=== PATIENT | female | born 1985 | race Caucasian/White ===

== ENCOUNTER → 2020-02-08 14:10 | Outpatient (BNVA) | payer OTHER, SELFPAY | PROVIDERS: Family Provider Family Medicine; PCP Family Medicine; Visit Provider Family Medicine | DX: Z11.59 Encounter for screening for other viral diseases (principal) | CPT/HCPCS: 87635 ==

== ENCOUNTER → 2022-07-31 11:01 | Outpatient (BNVA) | payer OTHER, SELFPAY | PROVIDERS: PCP Family Medicine; Visit Provider Family Medicine | DX: E66.9 Obesity, unspecified (principal) | CPT/HCPCS: 80053; 80061; 83036; 84443; 85025 ==

== ENCOUNTER 2022-09-25 06:53 | Emergency (ER) | payer OTHER, SELFPAY ==
[2022-09-25] VITALS (13 sets, daily range): BP systolic 131–171; BP diastolic 60–137; PULSE 64–91; RESP 13–21; O2SAT 95–100
--- NOTE | 2022-09-25 07:01 | ECG_ITS ---
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 Measurements Intervals [place] Rate: 80 P: 44 NC: 155 QRS: 43 QRSD: 84 T: 12 QT: 357 QTc: 414 Interpretive Statements SINUS RHYTHM NONSPECIFIC T-WAVE ABNORMALITY No previous ECG available for comparison Electronically Signed On 09-25-2022 14:18:54 CDT by Milo Barth M.D. [id number] f
--- NOTE | 2022-09-25 07:01 | XRR_ITS ---
PROCEDURE INFORMATION: Exam: XR Chest Exam date and time: 09/25/2022 7:27 AM Age: 36 years old Clinical indication: Pain; Angina pectoris; Prior surgery; Surgery type: Gallbladder; Additional info: Chest pain TECHNIQUE: Imaging protocol: Radiologic exam of the chest. Views: 1 view. COMPARISON: CR XR thoracic spine 3V* [id number] 04/01/2018 7:42 AM FINDINGS: Lungs: There is no consolidation. Pleural spaces: There is no pleural effusion or pneumothorax. Heart/Mediastinum: Cardiomediastinal contours are unremarkable. Bones/joints: Bones are unremarkable. XR/XR chest 1V portable [id number] IMPRESSION: No acute findings.
--- NOTE | 2022-09-25 07:07 | W.ED.CHESTPA ---
HPI - Chest Pain General: Chief Complaint: Chest Pain Stated Complaint: chest pain Time Seen by Provider: 09/25/22 06:58 Source: patient Mode of arrival: ambulatory Limitations: no limitations History of Present Illness: Patient is a 36-year-old female who presents to ED today with a complaint of elevated blood pressure and chest pain. She states she began noticing the chest pain approximately 1.5 hours ago while driving to work. She states upon arrival to work they checked her blood pressure and it was 180s/100s via manual. Patient states she has no history of hypertension but states at her last doctor's appointment they did tell her it was a little bit high but was just told to monitor. She is not on hypertensive medications. Patient states pain is located in the left side of her chest with radiation into her left arm. She denies shortness of breath or difficulty breathing. No lower extremity swelling or calf pain. No risk factors for PE. No known family cardiac disease however states her parents in an MVA in their 40s. She reports she did wake up this morning and noticed some nasal congestion. MD complaint: chest pain Onset (ago): hour(s) Timing of current episode: constant Prior episodes: No Onset: during rest Pain location: left chest Pain radiation: left arm Severity: moderate Quality: aching Relieving factors: nothing Exacerbating factors: nothing Associated symptoms: Reports no associated symptoms; Deny abdominal pain, dyspnea, fever(s), nausea, palpitations, syncope or vomiting Treatment prior to arrival: none Risk Factors: Coronary artery disease risk factors: none Thoracic aortic dissection risk factors: none Related Data: On Oral Contraceptives: No Review of Systems Const: Denies: fever(s), chills, body aches, fatigue or malaise Eyes: Denies: change in vision or blurry vision ENMT: Reports: nasal discharge and nasal congestion; Denies: throat pain or sinus pain Card: Reports: chest pain; Denies: palpitations, irregular heart rhythm, edema, swelling of feet/ankles, lightheadedness, syncope, pre-syncope, dyspnea on exertion, orthopnea, leg pain with exertion or acrocyanosis Resp: Denies: dyspnea, productive cough, wheezing, pain on inspiration, hemoptysis or chest congestion GI: Denies: abdominal pain, nausea, vomiting, heartburn or diarrhea : Denies: dysuria Musc: Denies: neck pain, back pain, extremity pain, extremity swelling or joint pain Skin/Breast: Denies: rash Neuro: Denies: headache(s), numbness in extremities, weakness in extremities or sensory changes PFSH ED PFSH: Family History Grandfather CAD (coronary artery disease) Lung disease Grandfather Cancer Colon Cancer Grandmother Diabetes Type 2 Grandmother Hypertension Denies family history of Clotting disorder Dementia Hyperlipidemia Psychiatric illness Chronic kidney disease (CKD) Suicide Anesthesia complication Bleeding disorder Family history of premature coronary artery disease Stroke Social History Smoking and tobacco status: never smoked Second hand smoke exposure: No Smoking risk assessment/counseling performed?: No Alcohol intake: never Desire information about alcohol rehabilitation?: No Counseling given: No Substance/Drug Use: never Desire information about substance/drug rehabilitation?: No Counseling given: No Adopted: No Caregiver/support person: No Lives independently: Yes Household members: spouse Marital status: Number of children: 4 Highest education level completed: Associate Degree: Occupational, Technical, Vocational Program service: No Current occupational status: employed 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 [employer] Current occupational exposures/hazards: No Pets and animals: No Sexually active: Yes Do you think of yourself as: Straight/Heterosexual Current gender identity: Female Physical Exam Const: COMMON NORMALS: no acute distress, patient oriented x3, no limitations, alert and well nourished GENERAL APPEARANCE: cooperative NUTRITIONAL APPEARANCE: obese morbidly obese ORIENTATION/CONSCIOUSNESS: Yes awake, Yes oriented to person, Yes oriented to place and Yes oriented to time HENMT: COMMON NORMALS: normocephalic and atraumatic HEAD & SCALP: normal to inspection, normocephalic and atraumatic Neck/C-Spine: COMMON NORMALS: full ROM, no lymphadenopathy and no JVD Chest: COMMONS NORMALS: normal inspection of the chest and normal palpation of entire chest wall Resp: COMMON NORMALS: normal respiratory effort and clear to auscultation bilaterally AUSCULTATION: clear to auscultation bilaterally Cardio: COMMON NORMALS: no JVD, regular rate and regular rhythm RATE: regular rate RHYTHM: regular rhythm GI: COMMON NORMALS: Normal to inspection, nondistended, normoactive bowel sounds present, Soft to palpation and non-tender PALPATION: Yes Soft to palpation Extremity: COMMON NORMALS: normal to inspection, capillary refill normal, no clubbing, cyanosis or edema, no calf tenderness and no pedal edema GENERAL: Yes normal exam except as noted Neuro: GLORIA COMA SCALE: document GCS findings Gloria coma scale eye opening: Spontaneous [place] coma scale verbal response: Orientated Gloria coma scale motor response: Obey commands [place] coma scale total score: 15 COMMON NORMALS: patient oriented x3, moves all extremities, no focal motor deficits, no sensory deficits noted and gait normal SENSORIUM/ORIENTATION: Yes alert, Yes oriented to person, Yes oriented to place and Yes oriented to time Skin: COMMON NORMALS: no rashes or lesions noted GENERAL SKIN EXAM: no rashes or lesions noted Course Vital Signs: Vital signs: Vital Signs Pulse Rate 77 09/25/22 08:15 Respiratory Rate 18 09/25/22 08:15 Blood Pressure 161/74 09/25/22 08:15 Pulse Oximetry 98 09/25/22 08:03 Oxygen Delivery Me thod Room Air 09/25/22 07:00 MDM - Chest Pain Medical Decision Making Patient appears in no acute distress. She initially arrives hypertensive but this has improved without intervention. Last BP upon reexamination was 150s over 80s. She reports her chest pain has much improved during her stay as well. CXR is normal. Blood work is unremarkable. Her baseline troponin was 6 with a delta of 0. EKGs showing no ischemic changes. She does have inverted T waves in lead III. This was reviewed with Dr. Dixon. Recommend follow-up with her primary care provider. Recommend she keep a blood pressure log so they can start antihypertensive medication if indicated. She states her bp at home is normally 130s/80s so I won't start her on any medications today but if log shows consistently elevated readings PCP most likely will. Lab Data 09/25/22 07:20 09/25/22 07:20 Radiology Impressions Chest X-Ray 09/25/22 07:01 IMPRESSION: No acute findings. Laboratory Results WBC 10.7 10^3/uL (4.0-10.0) H 09/25/22 07:20 RBC 4.63 10^6/uL (4.1-5.3) 09/25/22 07:20 Hgb 11.8 g/dL (11.5-15.3) 09/25/22 07:20 Hct 37.5 % (37.0-47.0) 09/25/22 07:20 MCV 81.0 fl (81-99) 09/25/22 07:20 MCH 25.5 pg (28.0-34.0) L 09/25/22 07:20 MCHC 31.5 g/dL (30.0-36.0) 09/25/22 07:20 RDW 14.0 % (12.1-15.1) 09/25/22 07:20 Plt Count 295 10^3/cmm (130-400) 09/25/22 07:20 MPV 9.8 fL (7.4-10.4) 09/25/22 07:20 Neut % (Auto) 69.6 % 09/25/22 07:20 Lymph % (Auto) 19.3 % 09/25/22 07:20 Caroline % (Auto) 6.8 % 09/25/22 07:20 Eos % (Auto) 3.3 % 09/25/22 07:20 Baso % (Auto) 0.6 % 09/25/22 07:20 Neut # (Auto) 7.45 10^3/uL (1.8-7.7) 09/25/22 07:20 Lymph # (Auto) 2.1 10^3/uL (0.8-4.8) 09/25/22 07:20 Caroline # (Auto) 0.7 10^3/uL (0.2-0.9) 09/25/22 07:20 Eos # (Auto) 0.4 10^3/uL (0.0-0.8) 09/25/22 07:20 Baso # (Auto) 0.1 10^3/uL (0.0-0.1) 09/25/22 07:20 Nucleated RBC % (auto) 0 % 09/25/22 07:20 Nucleated RBCs # 0.0 /100WBC 09/25/22 07:20 Sodium 135 mmol/L (136-145) L 09/25/22 07:20 Potassium 3.8 mmol/L (3.5-5.1) 09/25/22 07:20 Chloride 99 mmol/L (98-107) 09/25/22 07:20 Carbon Dioxide 24 mmol/L (22-29) 09/25/22 07:20 Anion Gap 15.8 (5-19) 09/25/22 07:20 BUN 17 mg/dL (6-20) 09/25/22 07:20 Creatinine 0.5 mg/dL (0.5-0.9) 09/25/22 07:20 GFR Calculation 140.4 mL/min (90-130) H 09/25/22 07:20 Glucose 109 mg/dL (65-115) 09/25/22 07:20 Calculated Osmolality 282 mOsm/kg (285-295) L 09/25/22 07:20 Calcium 8.9 mg/dL (8.5-10.5) 09/25/22 07:20 Total Bilirubin 0.3 mg/dL (0.15-1.2) 09/25/22 07:20 AST 14 U/L (0-32) 09/25/22 07:20 ALT 13 U/L (0-33) 09/25/22 07:20 Alkaline Phosphatase 94 U/L (35-105) 09/25/22 07:20 Troponin T Baseline 6 ng/L (0-10) 09/25/22 07:20 Troponin T 120 Minute 6.00 ng/L (0-10) 09/25/22 09:46 Total Protein 6.6 g/dL (6.6-8.7) 09/25/22 07:20 Albumin 3.7 g/dL (3.5-5.2) 09/25/22 07:20 Globulin 2.9 g/dL (1.3-4.6) 09/25/22 07:20 HCG, Qual Negative (Negative) 09/25/22 07:20 Discharge Plan Discharge Patient Disposition: Home Clinical Impression: Atypical chest pain Hypertension Qualifiers: Hypertension type: unspecified Qualified Code(s): I10 - Essential (primary) hypertension Condition: Stable Prescriptions: No Action fluoxetine 40 mg capsule 40 mg PO DAILY clonazepam 0.5 mg tablet 0.5 mg PO .PRN Rx Instructions: Take 0.25mg-0.5mg Once daily as needed. ibuprofen 800 mg Tablet 800 mg PO Q8H PRN (Reason: Pain) Tylenol Sinus Congestion Pain 2-5-325 mg Tablet 2 tab PO Q4H PRN (Reason: Congestion) ibuprofen 200 mg Capsule 400 mg PO Q6H PRN (Reason: Pain) Discharge Orders: Discharge ED (Routine); Ordered 09/25/22 Ordered By: Demetrice Arevalo Referrals: Arias Lanier MD [Primary Care Provider] - Activity Restrictions/Additional Instructions: As we discussed your chest pain work-up today was negative. I recommend keeping a blood pressure log at home and following up with primary care in 1 to 2 weeks so they may start you on blood pressure medications if readings are consistently elevated. You have indicated blood pressure normally is in the 130s/80s so I will hold off on starting you on blood pressure medications from the ED today. Coding Level of Care Code ED Technician Test Systems for Cheyanne Ren
[2022-09-25 07:38] LABS: Basophils # 0.1 10^3/uL (0.0-0.1); Basophils % 0.6 %; Eosinophils # 0.4 10^3/uL (0.0-0.8); Eosinophils % 3.3 %; Hematocrit 37.5 % (37.0-47.0); Hemoglobin 11.8 g/dL (11.5-15.3); Lymphocytes # 2.1 10^3/uL (0.8-4.8); Lymphocytes % 19.3 %; Mean Corpuscular HGB Conc 31.5 g/dL (30.0-36.0); Mean Corpuscular Hemoglobin 25.5 pg (28.0-34.0); Mean Platelet Volume 9.8 fL (7.4-10.4); Monocytes # 0.7 10^3/uL (0.2-0.9); Monocytes % 6.8 %; Neutrophils # 7.45 10^3/uL (1.8-7.7); Neutrophils % 69.6 %; Nucleated Red Blood Cells % 0 %; Platelet Count 295 10^3/cmm (130-400); Red Blood Count 4.63 10^6/uL (4.1-5.3); White Blood Count 10.7 10^3/uL (4.0-10.0)
[2022-09-25 08:06] LABS: HCG, Serum Qual Negative (Negative)
[2022-09-25 08:16] LABS: Troponin(5th) Baseline 6 ng/L (0-10)
[2022-09-25 08:18] LABS: Alanine Aminotransferase 13 U/L (0-33); Albumin Level 3.7 g/dL (3.5-5.2); Alkaline Phosphatase 94 U/L (35-105); Anion Gap 15.8 (5-19); Aspartate Amino Transferase 14 U/L (0-32); Blood Urea Nitrogen 17 mg/dL (6-20); Calcium 8.9 mg/dL (8.5-10.5); Carbon Dioxide 24 mmol/L (22-29); Chloride 99 mmol/L (98-107); Globulin 2.9 g/dL (1.3-4.6); Glomerular Filtration Rate 140.4 mL/min (90-130); Glucose 109 mg/dL (65-115); Osmolality Calculated 282 mOsm/kg (285-295); Potassium 3.8 mmol/L (3.5-5.1); Sodium 135 mmol/L (136-145); Total Bilirubin 0.3 mg/dL (0.15-1.2); Total Protein 6.6 g/dL (6.6-8.7)
--- NOTE | 2022-09-25 09:01 | ECG_ITS ---
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 Measurements Intervals [place] Rate: 62 P: 33 VA: 146 QRS: 40 QRSD: 86 T: 13 QT: 384 QTc: 392 Interpretive Statements SINUS RHYTHM NONSPECIFIC T-WAVE ABNORMALITY No previous ECG available for comparison Electronically Signed On 09-25-2022 14:25:39 CDT by Milo Barth M.D. [id number]
[2022-09-25 10:32] LABS: Troponin 5 2HR Delta 0 ABS# (0-10)
== END 2022-09-25 10:50 | disposition home or self-care (01) ==
PROVIDERS: Emergency Provider Physician Assistant; PCP Family Medicine
DX: R07.89 Other chest pain (principal); I10 Essential (primary) hypertension
CPT/HCPCS: 36415; 71045; 80053; 84484; 84703; 85025; 93005; 99285